=== PATIENT | male | born 1985 | race Caucasian/White ===

== ENCOUNTER 2018-11-24 19:21 | Emergency (ER) | payer MEDICAID ==
[2018-11-24] MEDS: ONDANSETRON (ODT) 4 MG TAB ODT (20:41)
[2018-11-24] MEDS: IBUPROFEN 800 MG TAB PO (20:42)
[2018-11-24] MEDS: HYDROCODONE/APAP (10/325) TAB PO (20:42)
[2018-11-24] MEDS: LIDOCAINE 1%/EPI (MDV) 50 ML INJ INJ (20:55)
[2018-11-24] MEDS: CEPHALEXIN 500 MG CAP PO (20:59)
[2018-11-24] MEDS: TRIMETHOPRIM/SULFAMETHOX (DS) TAB PO (20:59)
== END 2018-11-24 21:55 | disposition home or self-care (01) ==
LOC: FTE 19:21
DX: L05.92 Pilonidal sinus without abscess (principal)
CPT/HCPCS: 10080; 99283-25

== ENCOUNTER 2018-11-27 18:37 | Emergency (ER) | payer MEDICAID | END 2018-11-27 20:58 | disposition home or self-care (01) | LOC: FTE 18:37 | DX: Z48.01 Encounter for change or removal of surgical wound dressing (principal) | CPT/HCPCS: 99281; Z7502 ==